=== PATIENT | female | born 1955 | race Caucasian/White ===

== ENCOUNTER → 2023-11-11 09:44 | Outpatient (REF) | payer OTHER, SELFPAY | LOC: HWRAD 09:44 | PROVIDERS: ATTENDING PHYSICIAN Nurse Practitioner Adult Health | DX: R10.11 Right upper quadrant pain (principal) | CPT/HCPCS: 76700 ==

== ENCOUNTER → 2023-11-25 09:52 | Outpatient (REF) | payer OTHER, SELFPAY | LOC: HWRCS 09:52 | PROVIDERS: ATTENDING PHYSICIAN Nurse Practitioner Adult Health | DX: R93.1 Abnormal findings on diagnostic imaging of heart and coronary circulation (principal); I71.20 Thoracic aortic aneurysm, without rupture, unspecified; I10 Essential (primary) hypertension | CPT/HCPCS: 93306 ==

== ENCOUNTER → 2024-06-30 11:40 | Outpatient (REF) | payer OTHER, SELFPAY | LOC: HWWDC 11:40 | PROVIDERS: ATTENDING PHYSICIAN Nurse Practitioner Adult Health | DX: Z12.31 Encounter for screening mammogram for malignant neoplasm of breast (principal) | CPT/HCPCS: 77063; 77067 ==

== ENCOUNTER 2024-07-17 11:54 | Emergency (ER) | payer OTHER, SELFPAY ==
[2024-07-17 11:57] VITALS: BP 186/111
--- NOTE | 2024-07-17 11:59 | ED.GENMED ---
ED Provider Triage
<Roosevelt Maxwell PA-C - Last Filed: 07/17/24 12:00>
-
Patient seen by provider in Triage?: Seen in Triage
69-year-old female presents with dizziness. She describes a spinning sensation this has been persistent over the past 3 days. Dorsalis preceded by an episode of vomiting. She denies any significant headache. She denies double vision loss of
vision or blurry vision. No chest pain or shortness of breath.
Patient appears somewhat unsteady at triage but there is no aphasia or dysarthria. Vital signs are stable. Will start with basic labs EKG and CT of head
Patient seen by healthcare provider at triage but warrants further assessment
History of Present Illness
<Roosevelt Maxwell PA-C - Last Filed: 07/17/24 12:00>
General
Chief Complaint: Dizziness
Time Seen by Provider: 07/17/24 16:52
<Dianne Lay NP - Last Filed: 07/17/24 17:47>
General
Source: patient
Exam Limitations: none
Nursing documentation reviewed up to this point in time: agreed with
History of Present Illness
History of Present Illness:
Patient to ED with complaint of lightheadedness. States 1 week ago she developed dizziness, followed by an episode of vomiting. States she felt well the following day. Since then she reports periodic episodes of 'whooshing' sensation in her head.
Worse with lying flat. Today she felt like shew was going to pass out. This only lasted for a second or two. Brought toED by spouse for eval. No episodes while in ED. Denies fever/chills, recent illness.
Past History
<Roosevelt Maxwell PA-C - Last Filed: 07/17/24 12:00>
Past History
ED Past Medical History: HTN, Hypercholesterolemia, Hypothyroidism and Other (Vertigo)
ED Past Surgical History: Other (thyroidectomy)
Social History
Tobacco: Former smoker
Alcohol: Occasional
Drug: None
Personal:
Living: with family
Review of Systems
<Dianne Lay NP - Last Filed: 07/17/24 17:47>
Review of Systems
Allergies reviewed?: Yes
All Other Systems: ROS reviewed and negative except as documented in HPI and ROS
Constitutional: Reports no symptoms
EENT: Reports no symptoms
Respiratory: Reports no symptoms
Cardiac: Reports no symptoms
ABD/GI: Reports no symptoms
: Reports no symptoms
Musculoskeletal: Reports no symptoms
Skin: Reports no symptoms
Neurological: Reports dizzy
Psychiatric: Reports no symptoms
Phy Exam
<Dianne Lay FLIGHT ATTENDANT [employer] - Last Filed: 07/17/24 17:47>
General Physical Exam
General Presentation: well appearing and no apparent distress
General age: appears stated age
General Skin: warm and dry
General Habitus: normal
General Mental: alert
ENT Exam
ENT Exam: EOMI, TM's normal and neck supple
Eye Exam
Eye Exam: PERRL, EOMI and other (No nystagmus)
Cardiovascular Exam
Cardiovascular Exam: regular rate/rhythm, no edema and no murmur
Pulmonary Exam
Pulmonary Exam: lungs clear, no respiratory distress and chest non tender
Neurological Exam
Neurological Exam: alert, oriented x3, CN II-XII intact, no motor deficits, speech normal and normal gait
Musculoskeletal Exam
Musculoskeletal Exam: full ROM
Skin Exam
Skin Exam: normal color, warm/dry and no rash
Psychiatric Exam
Psychiatric Exam: normal mood/affect
Course
<Roosevelt Maxwell PA-C - Last Filed: 07/17/24 12:00>
Orders/Labs/Results
Orders:
Orders
07/17/24 11:57
Electrocardiogram (*1) Urgent
Reason for Study: Vertigo / Dizzy
EKG- Treatment ONCE
07/17/24 11:58
CT Head W/o Iv Contrast Urgent
Comment:
Reason For Exam: dizziness
07/17/24 12:15
Complete Blood Count/With Diff Urgent
Comprehensive Metabolic Panel Urgent
TSH Reflex To Free T4 Urgent
Comment: TSH REFLEX ADDED ON BY FLOOR 4:50PM 07-17-24
07/17/24 16:53
Add On- LAB Urgent
Tests Added?: TSH reflex free T4
07/17/24 17:24
Orthostatic VS- Treatment ONCE
Abnormal Lab Results
07/17/24
12:15
WBC 4.6 L 10^3/uL
(4.8-10.8)
MCH 31.4 H pg
(27.0-31.0)
Monocytes % 12.7 H %
(1.7-9.3)
Creatinine 0.5 L mg/dL
(0.6-1.0)
07/17/24 12:15
07/17/24 12:15
Vital Signs
Initial and Last Documented VS:
Initial Vital Signs
Temp Pulse Resp BP Pulse Ox
98.4 F 114 18 186/111 99
07/17/24 11:57 07/17/24 11:57 07/17/24 11:57 07/17/24 11:57 07/17/24 11:57
Last Documented Vital Signs
Temp Pulse Resp BP Pulse Ox
98.3 F 87 18 124/77 98
07/17/24 16:02 07/17/24 16:02 07/17/24 16:02 07/17/24 16:02 07/17/24 16:02
<Dianne Lay FL[employer] ATTENDANT [employer] - Last Filed: 07/17/24 17:47>
Orders/Labs/Results
Orders:
Orders
07/17/24 11:57
Electrocardiogram (*1) Urgent
Reason for Study: Vertigo / Dizzy
EKG- Treatment ONCE
07/17/24 11:58
CT Head W/o Iv Contrast Urgent
Comment:
Reason For Exam: dizziness
07/17/24 12:15
Complete Blood Count/With Diff Urgent
Comprehensive Metabolic Panel Urgent
TSH Reflex To Free T4 Urgent
Comment: TSH REFLEX ADDED ON BY FLOOR 4:50PM 07-17-24
07/17/24 16:53
Add On- LAB Urgent
Tests Added?: TSH reflex free T4
07/17/24 17:24
Orthostatic VS- Treatment ONCE
Abnormal Lab Results
07/17/24
12:15
WBC 4.6 L 10^3/uL
(4.8-10.8)
MCH 31.4 H pg
(27.0-31.0)
Monocytes % 12.7 H %
(1.7-9.3)
Creatinine 0.5 L mg/dL
(0.6-1.0)
07/17/24 12:15
07/17/24 12:15
Vital Signs
Initial and Last Documented VS:
Initial Vital Signs
Temp Pulse Resp BP Pulse Ox
98.4 F 114 18 186/111 99
07/17/24 11:57 07/17/24 11:57 07/17/24 11:57 07/17/24 11:57 07/17/24 11:57
Last Documented Vital Signs
Temp Pulse Resp BP Pulse Ox
98.3 F 87 18 124/77 98
07/17/24 16:02 07/17/24 16:02 07/17/24 16:02 07/17/24 16:02 07/17/24 16:02
<Dianne Lay NP - Last Filed: 07/17/24 17:47>
*Radiology
Radiology exam reviewed: radiology read reviewed
*Pulse Oximetry
Patient hypoxic: no
*Critical Care Note
Total Time (30-74mins, 75-104mins- exclusive of procedures): Not Applicable
<Dianne Lay NP - Last Filed: 07/17/24 17:47>
Update Note
Update Note:
Patient to ED with complaint of dizziness, 1 episode of vomiting 1 week ago. Since then has intermittent whooshing sensation in head. Last for a few seconds and then resolves. WOrse with lyng down. Labs reviewed, no concerning findings. EKG NSR,
neg tilt. Head CT normal. Neuro status is baseline. NO deficits noted. Asymptomatic in ED. WIll discharge home, close follow up with PCP. Requesting number for new PCP. Discussed outpatient holter monitoring. She will discuss with PCP. Denies
any cp/pressure, SOB.
ED Attending Note
<Roosevelt Maxwell PA-C - Last Filed: 07/17/24 12:00>
-
Portions of this chart may have been created with voice recognition software.� Occasional wrong word or��sound alike� substitutions may have occurred due to the inherent limitations of voice recognition software.
Discharge Plan
Departure
Patient Disposition: Home (Routine Discharge)
Date of Disposition: 07/17/24
Time of Disposition: 17:25
Patient with high blood pressure during this ER visit?: No
Condition: Good
Covid-19: Not Applicable
Discharge Problem:
Dizziness
Instructions: Dizziness, Nonvertigo, (DC)
Prescriptions:
No Action
amlodipine-benazepril 1 CAPSULE capsule
1 cap PO DAILY
multivitamin [Daily Multiple] 1 EACH tablet
1 ea PO DAILY
vitamin B complex [Neurodep] 1 CAP capsule
1 cap PO DAILY
docosahexaenoic acid-epa 1 CAP capsule
2 cap PO DAILY
multivit nib-dcyz-[id number]-herb 186 [Hair, Skin and Nails Advanced] 1 EACH tablet
1 ea PO DAILY
omeprazole 40 MG capsule,delayed release(DR/EC)
40 mg PO DAILY
Activity Restrictions/Additional Instructions:
Follow up with your family doctor. Return to the emergency department immediately for any changes in/worsening of your symptoms.
[facility] - Dr. Green [phone]
Interventions
Interventions:
*Risk Screen - Suicide Last Done: 07/17/24 11:57
*General Assessment Last Done: 07/17/24 11:57
*Neglect/Abuse Screening Last Done: 07/17/24 16:47
ED- Fall Risk Assessment Last Done: 07/17/24 16:46
*ED COVID-19 Vaccine History Last Done: 07/17/24 11:57
ED- Neurological Assessment Last Done: 07/17/24 16:46
ED- Cardiac Assessment Last Done: 07/17/24 16:46
Discharge Date and Time
Print Language: ROMANIAN
[2024-07-17 12:36] LABS: % Basophils 0.9 % (0-2); % Eosinophils 2.8 % (0-6); % Immature Granulocytes 0.2 % (0-0.5); % Monocytes 12.7 % (1.7-9.3); % Neutrophils 46.4 % (42.2-75.2); Absolute Eosinophils 0.1 10^3/uL (0-0.7); Absolute Lymphocytes 1.7 10^3/uL (1.2-3.4); Absolute Monocytes 0.6 10^3/uL (0.1-0.6); Absolute Neutrophils 2.1 10^3/uL (1.4-6.5); Hematocrit 40.4 % (37.0-47.0); Hemoglobin 13.9 g/dL (12.0-16.0); Mean Corp Hgb Conc. 34.4 g/dL (33.0-37.0); Mean Corpuscular Hgb 31.4 pg (27.0-31.0); Mean Corpuscular Volume 91.4 fL (81.0-99.0); Mean Platelet Volume 8.9 fL (7.4-10.4); Nucleated Red Blood Cells % 0 %; Platelet Count 289 10^3/uL (130-400); Red Blood Cell Count 4.42 10^6/uL (4.20-5.40); Red Cell Dist. Width 11.8 % (11.5-14.5); White Blood Cell Count 4.6 10^3/uL (4.8-10.8)
[2024-07-17 12:48] LABS: ALT (SGPT) 27 U/L (0-35); AST (SGOT) 30 U/L (14-36); Albumin 4.9 g/dl (3.5-5.0); Alkaline Phosphatase 67 U/L (38-126); Blood Urea Nitrogen 11 mg/dl (7-17); Calcium 9.3 mg/dl (8.4-10.2); Carbon Dioxide 29 mmol/L (22-30); Chloride 102 mmol/L (98-107); Glucose 99 mg/dl (70-99); Potassium 4.3 mmol/L (3.5-5.1); Sodium 139 mmol/L (135-145); Total Bilirubin 0.7 mg/dl (0.2-1.3); Total Protein 7.6 g/dl (6.3-8.2); eGFR > 60.00
[2024-07-17 16:02] VITALS: BP 124/77
[2024-07-17 17:30] VITALS: BP 126/81; BP 142/85; BP 150/89; PULSE 79; PULSE 84; PULSE 95
[2024-07-17 18:30] LABS: TSH Reflex To Free T4 2.05 uIU/ml (0.47-4.68)
== END 2024-07-17 18:09 | disposition home or self-care (01) ==
LOC: EMR 11:54
PROVIDERS: Physician Assistant; EMERGENCY PHYSICIAN Emergency Medicine; FAMILY PHYSICIAN Nurse Practitioner Adult Health
DX: R42 Dizziness and giddiness (principal); E03.9 Hypothyroidism, unspecified; E78.00 Pure hypercholesterolemia, unspecified; I10 Essential (primary) hypertension; Z87.891 Personal history of nicotine dependence
CPT/HCPCS: 99284; 70450; 80053; 84443; 85025; 93005